=== PATIENT | female | born 1985 | race Caucasian/White ===

== ENCOUNTER 2024-02-20 08:22 | Outpatient (AMB) | payer BC, SELFPAY ==
--- NOTE | 2024-02-20 09:00 | MHC.OFFWIV ---
Intake Vital Signs 02/20/24 09:03 Weight 238 lb BP 108/76 Blood Pressure Location Lt brachial Position Sitting Pulse 75 Pulse Source Pulse Oximeter Temp 98.0 F Temp Source Oral Pulse Oximetry (%) 98 Oxygen Delivery Method Room Air Intake Visit Reasons: [employer]-cough, metallic taste in the mouth Intake Note: Patient here for cough that has been present for a couple of weeks, she states she had a coughing fit where she could not catch her breathe which lasted about 20 minutes. Cough has settled down but now has a metallic taste in her mouth. Patient Tobacco Use Status: Never used Tobacco Allergies pineapple [PINEAPPLE] Allergy (Unknown, Unverified 02/20/24 09:05) HARD TIME BREATHING. latex [LATEX] Adverse Reaction (Unknown, Unverified 02/20/24 09:05) RASH Do you need a note to return to daycare/school/sports/work: Yes HPI [employer]-cough, metallic taste in the mouth HPI Details This note is constructed using voice recognition software. 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 The patient is a 38 year old female who presents to the clinic today with cough for the past several weeks. She reports that her pcp feels she may have asthma, and she was prescribed an inhaler, which she does not feel seems to help her. She developed a cough, and it felt rather random to her as she did not have any sore throat, fever, chills, allergy symptoms, or URI symptoms. The cough progressed, got worse, got to the point where she had such prolonged coughing episodes that she felt short of breath during the episodes. She has been mildly dyspneic, particularly when she is talking, or highly active. She continues to not deny fever, chills. She does report that her energy level has been low for the last couple of weeks [facility] Social History Patient Tobacco Use Status: Never used Tobacco Review of Systems Const All systems reviewed & are unremarkable except as noted in HPI and below Physical Exam Vital Signs: Last Vital Signs Temp 98.0 F 02/20/24 09:03 Pulse 75 02/20/24 09:03 BP 108/76 02/20/24 09:03 Pulse Ox 98 02/20/24 09:03 Oxygen Delivery Method Room Air 02/20/24 09:03 Const General: cooperative, healthy appearing, comfortable, no acute distress and well developed Orientation/consciousness: patient oriented x3 Limitations: no limitations HEENT Head: Yes normal to inspection Ears: hearing grossly normal bilaterally General nose exam: Normal external nose present Face and sinus: Yes normal facial exam Eyes General: appearance normal, both eyes and all related structures Neck Neck: Yes normal visual inspection and Yes full ROM Resp Effort & Inspection: normal respiratory effort Auscultation: diminished lung sounds on the right throughout and on the left in the lower lung glynn Cardio Rate: regular rate Rhythm: regular rhythm Heart sounds: normal S1 and S2 Skin General skin exam: no rashes or lesions noted Neuro General: patient oriented x3 Assessment & Plan Assessment & Plan (1) Pneumonia: Code(s): J18.9 - Pneumonia, unspecified organism Qualifiers: Pneumonia type: due to unspecified organism Laterality: unspecified laterality Lung location: unspecified part of lung Qualified Code(s): J18.9 - Pneumonia, unspecified organism Plan: X-ray ordered to evaluate, appears likely pneumonia. Antibiotics sent to requested pharmacy. Curb 65 score 0. Advised patient to monitor for improvement, versus worsening. She should have re-evaluation should she develop worsening dyspnea, worsening energy level, or increased fever. Plan See above for full details and plan. Orders: Orders XR chest 2V Today R05.9 - Cough, unspecified Medications: New azithromycin For 250 mg dose pack: take 500 mg today (day 1), then 250 mg for 4 days (days 2-5) PO 6 tabs 0RF amoxicillin 1,000 mg (2 x 500 mg) PO Q8H 7 days 42 caps 0RF Coding Level of Care Code New Pt Level 4 (98152) Diagnoses Pneumonia due to infectious organism, unspecified laterality, unspecified part of lung J18.9 Pneumonia type: due to unspecified organism Laterality: unspecified laterality Lung location: unspecified part of lung
[2024-02-20 09:03] VITALS: BP 108/76; PULSE 75; TEMP 36.7; O2SAT 98
== END 2024-02-20 10:00 | disposition home or self-care (01) ==
PROVIDERS: PCP Internal Medicine; Visit Provider Registered Nurse
DX: J18.9 Pneumonia, unspecified organism (principal)

== ENCOUNTER → 2024-02-20 08:22 | Outpatient (BNVA) | payer BC, SELFPAY | PROVIDERS: PCP Internal Medicine; Visit Provider Registered Nurse ==

== ENCOUNTER 2024-02-20 09:22 | Outpatient (REF) | payer BC, SELFPAY ==
--- NOTE | ~2024-02-20 | XR_ITS ---
EXAMINATION: XR CHEST CLINICAL INFORMATION: Cough unspecified COMPARISON: None available. TECHNIQUE: 2 views of the chest were obtained. FINDINGS: Lungs clear. No pleural effusions. Heart and pulmonary vessels normal. XR/XR chest 2V IMPRESSION: No active disease. Electronically signed by: Heriberto Martinez MD 02/20/2024 02:17 PM EDT
== END 2024-02-20 09:23 | disposition home or self-care (01) ==
LOC: HO.HMGCX 09:22
PROVIDERS: Visit Provider Registered Nurse
DX: J18.9 Pneumonia, unspecified organism (principal); R05.9 Cough, unspecified
CPT/HCPCS: 71046